=== PATIENT | male | born 1960 | race Caucasian/White ===

== ENCOUNTER 2017-05-29 09:55 | Emergency (ER) | payer BC ==
[2017-05-29 10:06] VITALS: BP 133/66; PULSE 74; RESP 18; TEMP 98
[2017-05-29] MEDS ORDERED: KETOROLAC 60 MG/2 ML VIAL IM STA (10:07)
--- NOTE | 2017-05-29 10:41 | XR ---
EXAMINATION TYPE: XR shoulder complete RT DATE OF EXAM: 05/29/2017 CLINICAL HISTORY: Fall injury with right shoulder pain. TECHNIQUE: Three views of the right shoulder are obtained. COMPARISON: None. FINDINGS: There is no acute fracture/dislocation evident in the right shoulder. There is moderate sp urring and joint space loss at acromioclavicular joint. Glenohumeral joint is maintained. The visuali zed ribs are intact and unremarkable. IMPRESSION: There is no acute fracture or dislocation in the right shoulder.
--- NOTE | 2017-05-29 10:42 | XR ---
EXAMINATION TYPE: XR chest 1V DATE OF EXAM: 05/29/2017 COMPARISON: Chest x-ray July 11, 2016 HISTORY: Chest pain after fall injury. TECHNIQUE: Single AP portable frontal upright view of the chest is obtained. FINDINGS: There is persistent chronic emphysematous change and right upper lung scarring. There is n o new focal air space opacity, pleural effusion, or pneumothorax seen. The cardiac silhouette size i s within normal limits. Some multilevel spurring in thoracic spine is redemonstrated. IMPRESSION: Chronic changes without acute pulmonary process.
--- NOTE | 2017-05-29 11:02 | ED ---
Upper Extremity HPI - General Chief Complaint: Extremity Injury, Upper Stated Complaint: POSS RT SHOULDER DISLOCATION Time Seen by Provider: 05/29/17 10:07 Source: patient Mode of arrival: ambulatory Limitations: no limitations - History of Present Illness Initial Comments: Patient states that he accidentally tripped and fell, injuring his right shoulder. He did not hit his head. He denies conscious. Pain does not radiate anywhere else. The pain is worse with movement. He took no pain medication prior to arrival. He has no numbness or tingling in the hand. He has no loss of function of the right upper extremity. Complaint: Injury to:: right, shoulder Place: work - Related Data Home Medications Medication Instructions Recorded Confirmed No Known Home Medications [No 07/11/16 05/29/17 Known Home Medications] Allergies Allergy/AdvReac Type Severity Reaction Status Date / Time No Known Allergies Allergy Verified 05/29/17 10:12 Review of Systems ROS Statement: Those systems with pertinent positive or pertinent negative responses have been documented in the HPI. ROS Other: All systems not noted in ROS Statement are negative. Past Medical History Past Medical History: No Reported History History of Any Multi-Drug Resistant Organisms: None Reported Past Surgical History: Hernia Repair Past Psychological History: No Psychological Hx Reported Smoking Status: Current every day smoker Past Alcohol Use History: Heavy Past Drug Use History: None Reported General Exam Limitations: no limitations General appearance: alert, in no apparent distress Head exam: Present: atraumatic, normocephalic, normal inspection Extremities exam: Present: normal inspection, tenderness, normal capillary refill. Absent: full ROM Course Vital Signs 05/29/17 10:02 Temperature 98 F Pulse Rate 74 Respiratory 18 Rate Blood Pressure 133/66 O2 Sat by Pulse 98 Oximetry Medical Decision Making - Medical Decision Making Patient complains of injury to the right shoulder. I gave him 60 mg IM Toradol. He is neurovascularly intact. He has negative imaging per radiology. He is stable for discharge. Disposition Clinical Impression: Shoulder subluxation, right Disposition: HOME SELF-CARE Condition: Good Instructions: Shoulder Sprain (ED) Referrals: Isis Cummings MD [Primary Care Provider] - 1-2 days
== END 2017-05-29 11:11 | disposition home or self-care (01) ==
LOC: EC 09:55
DX: S43.001A Unspecified subluxation of right shoulder joint, initial encounter (principal); F17.200 Nicotine dependence, unspecified, uncomplicated; W01.0XXA Fall on same level from slipping, tripping and stumbling without subsequent striking against object, initial encounter; Y92.69 Other specified industrial and construction area as the place of occurrence of the external cause; Y99.0 Civilian activity done for income or pay; Z53.20 Procedure and treatment not carried out because of patient's decision for unspecified reasons
CPT/HCPCS: 71010; 99283

== ENCOUNTER → 2017-08-07 | Outpatient (CLI) | payer OTHER ==
--- NOTE | 2017-08-07 07:56 | MR ---
EXAMINATION TYPE: MR shoulder RT wo con DATE OF EXAM: 08/07/2017 7:26 AM COMPARISON: NONE HISTORY: Rt Shoulder Discolation TECHNIQUE: Multiplanar multispin echo imaging of the right shoulder was performed. FINDINGS: Rotator cuff : There is retracted tear subscapularis tendon with fluid filled gap measuring approxima tely 8 mm. Moderate intrasubstance and undersurface tear noted of the supraspinatus tendon with the c omplete microtear difficult to exclude. No evidence for retraction. Remaining constituents of the rot ator cuff are intact. Bursa/Glenohumeral Joint fluid : Subacromial subdeltoid fluid is noted. Fluid is also noted within t he subcoracoid region. Musculature: There is no muscular tear, contusion, or atrophy. Acromioclavicular joint : Moderate AC joint arthropathy with lateral downsloping and subacromial spur ring resulting in impingement. Osseous structures : There are no fractures or regions of abnormal bon e marrow signal intensity. Long biceps tendon : The biceps tendon is normally situated within the bicipital groove. No complete or partial biceps tendon tear is present. Tendinosis of the intraarticular portion of the biceps tend on. Cartilage and Bone : No focal hyaline cartilage defects are noted. No Hill-Sachs, reverse Hill-Sachs, or bony Bankart lesions are seen. Nonspecific heterogeneity of the bone marrow signal. Labrum : Glenoid labral tear anterior superior and anterior inferior component. Posterior glenoid lab rum is intact. OTHER FINDINGS : none IMPRESSION: 1. Retracted tear subscapularis tendon. 2. Moderate grade undersurface and intrasubstance tears of the supraspinatus tendon with complete ousmane roperforation difficult to exclude. 3. Glenoid labral tear anterior superior and anterior inferior components. 4. Joint effusion as discussed. 5. AC joint arthropathy with subacromial spurring and resultant subacromial impingement..
== END | disposition home or self-care (01) ==
LOC: RADMRIMAIN 06:51
PROVIDERS: ATTEND Emergency Medicine
DX: S46.011A Strain of muscle(s) and tendon(s) of the rotator cuff of right shoulder, initial encounter (principal); S43.431A Superior glenoid labrum lesion of right shoulder, initial encounter; M12.811 Other specific arthropathies, not elsewhere classified, right shoulder

== ENCOUNTER → 2018-05-05 | Outpatient (CLI) | payer BC ==
--- NOTE | 2018-05-05 07:31 | MR ---
EXAMINATION TYPE: MR shoulder RT wo con DATE OF EXAM: 05/05/2018 COMPARISON: 08/07/2017 HISTORY: Rt shoulder pain TECHNIQUE: Multiplanar, multisequence imaging of the right shoulder is performed without contrast. FINDINGS: Rotator Cuff: There is fluid signal on T2-weighted sequences transversing the supraspinatus tendon an d is compatible with a tear which on sagittal plane images estimated at 2.4 cm in size. This is a par tial tear without retraction of the more posterior portion of the supraspinatus tendon. Muscle signal is preserved, no muscle atrophy is evident. Some extension of tear into the subscapularis tendon may be present. This is a change from the comparison study. Infraspinatus tendon is intact. Some tendino sis however may be present with small amount of fluid adjacent. Acromioclavicular Joint: Hypertrophy with downward spurring which can contribute to impingement syndr ome. Superior spurring is also noted. Glenohumeral Joint: Some thinning of the articular cartilage of the glenoid appears to be present. Labrum: The labrum appears grossly intact given limitation of non-arthrogram study. Biceps Tendon: The long head of biceps is in normal location within bicipital groove. The horizontal portion however could not be identified. Bone marrow signal: Some subchondral cyst formation may be present near the insertion of the supraspi natus and infraspinatus insertion sites on the humeral head. This is an interval change. Other: Small joint effusion is present. Fluid is within the subacromial bursa some minimal subdeltoid bursal fluid is present. IMPRESSION: 1. Rotator cuff tear of the subscapularis supraspinatus junction. This is a partial tear without retr action of the supraspinatus tendon or muscle. 2. Tendinosis of the infraspinatus and long head of the biceps tendon. 3. Small joint effusion. 4. Acromioclavicular joint hypertrophy which can contribute to impingement syndrome
== END | disposition home or self-care (01) ==
LOC: RADMRIMAIN 06:11
PROVIDERS: ATTEND Orthopaedic Surgery
DX: M75.111 Incomplete rotator cuff tear or rupture of right shoulder, not specified as traumatic (principal); M75.41 Impingement syndrome of right shoulder; M75.81 Other shoulder lesions, right shoulder